=== PATIENT | female | born 1940 | race Caucasian/White ===

== ENCOUNTER → 2016-07-28 | Outpatient (CLI) | payer MEDICARE, OTHER ==
[~2016-07-28] MED LIST: ASPIRIN EC81 M1 PO; BONIVA150 MG PO; CENTRUM SILVER; EYE CAPS PO; FLEXERIL; HYDROCODON-ACE1 EAC7 PO; LO-DOSE ASPIRIN81 M1 PO; LORTAB 5/500 TA1 TA1 PO; NAPROXEN; NAPROXEN PO; PERCOCET5/325; PRESERVISION; PROBIOTIC1 EAC3 PO; ROBAXIN PO; VICODIN 5/500 T1 TAB; ZOFRAN PO
--- NOTE | ~2016-07-28 | MY7 ---
[facility] A Service of [facility] & [facility] RADIOLOGY TEXT RESULTS PATIENT: SAMANTHA CHAVEZ LOCATION: [facility] : 42 UNIT #: [id number] AGE: [address]: Albert Cordon MD SEX: F ORDER DR: [id number] [facility] [address] [place], [place] [address] [id number] O MR#: [id number] Acc #: [id number] NAME: SAMANTHA CHAVEZ. : 1940 SEX: F STUDY DATE/TIME: 07/28/2016 13:30 UNIT: [facility] ROOM: STUDY DESCRIPTION: MY Mammogram Dx Dig Lt Attending Physician: Albert Cordon M.D. Ordering Physician: Albert Cordon M.D. Primary Care Physician: Albert Cordon M.D. MEDICAL IMAGING REPORT This report is preliminary unless electronic signature is present EXAM Additional views left breast, 07/28/2016 INDICATIONS 76-year-old asymptomatic female with a history of right mastectomy for breast cancer. The patient was recalled for an asymmetry in the left breast perhaps a summation artifact on a recent screening study performed 06/24/2016. She reports no new problems today. TECHNIQUE Compression CC compression MLO and true lateral views of the left breast were obtained and reviewed with an FDA-approved CAD device COMPARISON Studies 06/24/2016 06/18/2015 05/23/2014 01/18/2013 FINDINGS The tiny nodular asymmetry in the left breast persists on the additional views today, however, it is also visible on prior studies dating back to 2012 with varying degrees of conspicuity and unchanged in terms of size, measuring between 3-4 mm. This is most characteristic of a benign etiology. No additional suspicious finding on additional views today. The patient denies a palpable abnormality and absent new or worsening symptoms, the patient should return for a repeat mammogram in 1 year. Targeted ultrasound was not thought to offer additional diagnostic benefit and therefore was not performed. Findings and recommendations were discussed with the patient and she voiced understanding and agreement. IMPRESSION 1. Stable 3-4 mm fibroglandular type asymmetry in the medial upper hemisphere left breast. This is unchanged from prior studies dating back to 2012 for technical factors and therefore benign. Return to an annual mammography regimen is recommended. See discussion above. [facility] A Service of [facility] RADIOLOGY TEXT RESULTS PATIENT: SAMANTHA CHAVEZ LOCATION: [facility] : 42 UNIT #: [id number] AGE: [address]: Albert Cordon MD SEX: F ORDER DR: Patients over the age of 40 are entered into a reminder system with target due date for the next mammogram. A result letter will also be sent to the patient. BIRADS: 2, benign findings. Dictated by... Stephen Norman M.D. THIS IS AN ELECTRONICALLY VERIFIED REPORT Stephen Norman M.D. at 07/28/2016 5:19 PM NICK/desirae TD: 07/28/2016 14:36 JOB #: [id number] MEDICAL IMAGING REPORT Page 1 of 1 COPY
== END | disposition home or self-care (01) ==
LOC: CMAM 12:44
DX: R92.8 Other abnormal and inconclusive findings on diagnostic imaging of breast (principal); N64.89 Other specified disorders of breast
CPT/HCPCS: G0206

== ENCOUNTER → 2016-09-09 | Outpatient (CLI) | payer MEDICARE, OTHER | END | disposition home or self-care (01) | LOC: CSSDAY 06:49 | DX: M81.0 Age-related osteoporosis without current pathological fracture (principal); T50.905S Adverse effect of unspecified drugs, medicaments and biological substances, sequela; Z79.899 Other long term (current) drug therapy | CPT/HCPCS: 36415; 82310; 96372; J0897 ==

== ENCOUNTER → 2016-10-11 | Day surgery (SDC) | payer MEDICARE, OTHER ==
--- NOTE | ~2016-10-11 | OR ---
Unit #: [id number] #: [id number] Patient: SAMANTHA CHAVEZ [id number] [address] [place], [place] [address] [id number] O MR#: [id number] NAME: SAMANTHA CHAVEZ ROOM: Date of Procedure: 10/11/2016 Admission Date: 10/11/2016 Surgeon: Elton Aguero M.D. : 1940 Attending Physician: Elton Aguero M.D. Primary Care Physician: Albert Cordon M.D. OPERATIVE REPORT PREOPERATIVE DIAGNOSES Neck pain, degenerative cervical facet disease, cervical spondylosis. POSTOPERATIVE DIAGNOSES Neck pain, degenerative cervical facet disease, cervical spondylosis. PROCEDURE PERFORMED Cervical facet injection x2 levels with intravenous sedation and fluoroscopic guidance for needle localization. INDICATIONS FOR PROCEDURE The patient is a 76-year-old female with multi-history of worsening neck pain especially left-sided. She had some occipital neuralgia type headaches as well with this. Examination is consistent with the facet etiology for this. Workup was demonstrated severe facet disease at the left C3-C4 level, moderate at C4-C5, severe at C7-T1. She also has facet disease on the right. He symptom complexes worse on the left and there was tenderness more at the mid neck and I believe that the C3-C4 and C4-C5 levels are more symptomatic. Plan is for trial of diagnostic and therapeutic facet injections. DESCRIPTION OF PROCEDURE The patient was placed in a seated position. Standard monitors were applied. 1 mg of Versed was given for sedation and anxiolysis, which was adequate. Vital signs remained stable. Sterile prep and drape then of the cervical area was performed. The skin at the right of midline lateral to the C3-C4 and C4-C5 facet joints localized with 1% lidocaine. A 20-gauge Quincke point spinal needle was advanced at each of these levels into the corresponding C3-L4 and C4-C5 facet joints. Position was confirmed with fluoroscopy. After confirming proper positioning, a dose of 1 mL of a mixture of 80 mg of Depo-Medrol and 3 mL of 0.25% bupivacaine were deposited, 0.5 mL within joint and 0.5 mL just outside the joint. The needles were flushed and removed. The exact same procedure was then repeated on the left at the C3-C4 and C4-C5 levels again with fluoroscopic guidance. After confirming proper positioning and depositing the same dosing of medication in the same manner, the needles were flushed and removed. The patient tolerated the entire procedure otherwise well and was discharged to the recovery room in stable condition. Dictated by.Miky Aguero M.D. Unit #: [id number] #: [id number] Patient: SAMANTHA CHAVEZ NIKKO/jerilyn TD: 10/11/2016 23:49 JOB #: [id number] OPERATIVE REPORT Page 1 of 1 X Elton Aguero MD X PROCEDURE OPERATIVE NOTE
== END | disposition home or self-care (01) ==
LOC: CCSC 08:04
DX: M47.22 Other spondylosis with radiculopathy, cervical region (principal); M53.82 Other specified dorsopathies, cervical region; M53.83 Other specified dorsopathies, cervicothoracic region; M81.0 Age-related osteoporosis without current pathological fracture; M19.90 Unspecified osteoarthritis, unspecified site; Z79.82 Long term (current) use of aspirin; Z79.1 Long term (current) use of non-steroidal anti-inflammatories (NSAID); Z79.899 Other long term (current) drug therapy; Z90.710 Acquired absence of both cervix and uterus; Z90.11 Acquired absence of right breast and nipple; Z90.49 Acquired absence of other specified parts of digestive tract; Z98.49 Cataract extraction status, unspecified eye; Z98.890 Other specified postprocedural states
CPT/HCPCS: J1040; J2250

== ENCOUNTER → 2016-11-28 | Outpatient (CLI) | payer MEDICARE, OTHER ==
--- NOTE | ~2016-11-28 | US85 ---
[facility] A Service of [facility] RADIOLOGY TEXT RESULTS PATIENT: SAMANTHA CHAVEZ LOCATION: [facility] : 44 UNIT #: [id number] AGE: [address]: Albert Cordon MD SEX: F ORDER DR: [id number] [facility] [address] [place], [place] [address] [id number] O MR#: [id number] Acc #: [id number] NAME: SAMANTHA CHAVEZ : 1940 SEX: F STUDY DATE/TIME: 11/28/2016 16:53 UNIT: [facility] ROOM: STUDY DESCRIPTION: [facility] Attending Physician: Albert Cordon M.D. Referring Physician: Albert Cordon M.D. Ordering Physician: Albert Cordon M.D. Primary Care Physician: Albert Cordon M.D. MEDICAL IMAGING REPORT This report is preliminary unless electronic signature is present EXAM Left lower extremity venous duplex, 11/28/2016 HISTORY Left lower extremity pain and edema for 2 weeks. No known injury. Evaluate for deep vein thrombosis. TECHNIQUE Venous ultrasound examination of the left lower extremity was performed using grayscale, spectral Doppler and color flow Doppler imaging. FINDINGS The examination is negative. There is no evidence of left lower extremity deep venous thrombus from the groin to the lower calf. Visualized greater saphenous vein is also patent. IMPRESSION Negative examination. No evidence of left lower extremity deep venous thrombosis. Dictated by... Ric Ascencio M.D. THIS IS AN ELECTRONICALLY VERIFIED REPORT Ric Ascencio M.D. at 11/29/2016 2:13 PM STORMY/angélica TD: 11/29/2016 09:03 JOB #: [id number] MEDICAL IMAGING REPORT Page 1 of 1 COPY
== END | disposition home or self-care (01) ==
LOC: CNIV 16:00
DX: R60.0 Localized edema (principal)
CPT/HCPCS: 93971